=== PATIENT | female | born 1960 | race Caucasian/White ===

== ENCOUNTER 2016-11-04 07:12 | Observation (INO) | payer OTHER ==
[2016-11-04] MEDS ORDERED: HYDROmorphone 0.5 MG/0.5 ML Syringe IM ONE (07:42)
--- NOTE | 2016-11-04 07:52 | EDM.PDOC ---
ED UPPER BACK/NECK PAIN/INJURY - General Chief Complaint: Back Pain or Injury Stated Complaint: REACTION TO MEDS?? 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 She is just getting started on taltz. She has had one half dose. Timing/Duration: Reports: Getting worse, Other (pt is chilling. ) Location: Reports: generalized, other (pt has alot of pain in the thigh area. ) Quality: Reports: Ache, Sharp Associated Symptoms: Reports: Fever/chills, Other (pt does have pain when she urinates. ) - Related Data Allergies/ADRs: Allergies Allergy/AdvReac Type Severity Reaction Status Date / Time dye Allergy Seizure Uncoded 11/04/16 07:38 Home Meds: Home Meds Diazepam [Diazepam] 11/04/16 [History] FLUoxetine [PROzac] 11/04/16 [History] Gabapentin [Neurontin] 11/04/16 [History] Ixekizumab [Taltz Autoinjector] 11/04/16 [History] traZODone 11/04/16 [History] ED ROS GENERAL - Review of Systems Review Of Systems: See Below Constitutional: Reports: fever, chills, malaise, other ( alot of body aches. ) HEENT: Reports: No symptoms Respiratory: Reports: No Symptoms Cardiovascular: Reports: No symptoms Endocrine: Reports: no symptoms GI/Abdominal: Reports: No symptoms : Reports: other ( some increased pain in her pelvis when she voids. ) Musculoskeletal: Reports: muscle pain, muscle stiffness Neurological: Reports: No Symptoms ED EXAM, UPPER BACK/NECK PAIN - Physical Exam Exam: See Below Text/Narrative:: pt has severe pain in the pelvis and ant thighes. She has not been able to rest all nite and she has had shaking chills. Her temp at this point is 100. Exam Limited By: No limitations General Appearance: alert, anxious, moderate distress Ears Exam: normal TMs Nose Exam: normal inspection Throat/Mouth Exam: Normal inspection Head Exam: atraumatic Neck Exam: non-tender Cardiovascular/Respiratory: regular rate, rhythm GI/Abdominal: soft, non tender Rectal (Female) Exam: Deferred Back Exam: other (pt has pain in her lower back and she has psin in her thighes. ) Extremities: normal inspection Neurologic: alert, oriented x 3 Course - Vital Signs Last Recorded V/S: Last Vital Signs Temp 36.8 C 11/04/16 10:50 Pulse 88 11/04/16 10:50 Resp 16 11/04/16 10:50 BP 110/56 L 11/04/16 10:50 Pulse Ox 91 L 11/04/16 10:50 - Orders/Labs/Meds Orders: Active Orders 24 hr Category Date Time Status CULTURE BLOOD [BC] Urgent Lab 11/04/16 08:30 Received CULTURE BLOOD [BC] Urgent Lab 11/04/16 08:37 Received CULTURE URINE [RM] Stat Lab 11/04/16 08:40 Received Sodium Chloride 0.9% [Normal Saline] 1,000 ml Med 11/04/16 08:15 Active IV ASDIRECTED Sodium Chloride 0.9% [Normal Saline] 1,000 ml Med 11/04/16 10:45 Active IV ASDIRECTED Blood Culture x2 Reflex Set [OM.PC] Urgent Oth 11/04/16 08:22 Ordered Medication Orders Sodium Chloride (Normal Saline) 1,000 mls @ 500 mls/hr IV ASDIRECTED JAYNE Last Admin: 11/04/16 08:27 Dose: 500 mls/hr Sodium Chloride (Normal Saline) 1,000 mls @ 200 mls/hr IV ASDIRECTED JAYNE Last Admin: 11/04/16 10:44 Dose: 200 mls/hr Labs: Laboratory Tests 11/04/16 11/04/16 11/04/16 Range/Units 07:50 07:50 07:50 WBC 8.9 (4.5-11.0) K/uL RBC 4.23 (3.30-5.50) M/uL Hgb 12.6 (12.0-15.0) g/dL Hct 38.6 (36.0-48.0) % MCV 91 (80-98) fL MCH 30 (27-31) pg MCHC 33 (32-36) % Plt Count 209 (150-400) K/uL Neut % (Auto) 81 H (36-66) % Lymph % (Auto) 13 L (24-44) % [place] % (Auto) 5 (2-6) % Eos % (Auto) 0 L (2-4) % Baso % (Auto) 1 (0-1) % ESR (0-25) mm/hr Sodium 141 (140-148) mmol/L Potassium 3.1 L (3.6-5.2) mmol/L Chloride 104 (100-108) mmol/L Carbon Dioxide 29 (21-32) mmol/L Anion Gap 11.1 (5.0-14.0) mmol/L BUN 7 (7-18) mg/dL Creatinine 0.8 (0.6-1.0) mg/dL Est Cr Clr Drug Dosing 66.11 mL/min Estimated GFR (MDRD) > 60 (>60) Glucose 141 H (74-106) mg/dL Lactic Acid (0.4-2.0) mmol/L Calcium 7.8 L (8.5-10.1) mg/dL Total Bilirubin 0.3 (0.2-1.0) mg/dL AST 12 L (15-37) U/L ALT 21 (12-78) U/L Alkaline Phosphatase 55 (46-116) U/L C-Reactive Protein 0.49 H (0.0-0.3) mg/dL Total Protein 6.1 L (6.4-8.2) g/dL Albumin 3.2 L (3.4-5.0) g/dL Globulin 2.9 (2.3-3.5) g/dL Albumin/Globulin Ratio 1.1 L (1.2-2.2) Urine Color Urine Appearance Urine pH (4.5-8.0) Ur Specific [place] (1.008-1.030) Urine Protein (NEGATIVE) mg/dL Urine Glucose (UA) (NEGATIVE) mg/dL Urine Ketones (NEGATIVE) mg/dL Urine Occult Blood (NEGATIVE) Urine Nitrite (NEGATIVE) Urine Bilirubin (NEGATIVE) Urine Urobilinogen (NORMAL) mg/dL Ur Leukocyte Esterase (NEGATIVE) Urine RBC (0-5) Urine WBC (0-5) Ur Epithelial Cells Amorphous Sediment Urine Bacteria Urine Mucus 11/04/16 11/04/16 11/04/16 Range/Units 08:13 08:40 08:52 WBC (4.5-11.0) K/uL RBC (3.30-5.50) M/uL Hgb (12.0-15.0) g/dL Hct (36.0-48.0) % MCV (80-98) fL MCH (27-31) pg MCHC (32-36) % Plt Count (150-400) K/uL Neut % (Auto) (36-66) % Lymph % (Auto) (24-44) % [place] % (Auto) (2-6) % Eos % (Auto) (2-4) % Baso % (Auto) (0-1) % ESR 17 (0-25) mm/hr Sodium (140-148) mmol/L Potassium (3.6-5.2) mmol/L Chloride (100-108) mmol/L Carbon Dioxide (21-32) mmol/L Anion Gap (5.0-14.0) mmol/L BUN (7-18) mg/dL Creatinine (0.6-1.0) mg/dL Est Cr Clr Drug Dosing mL/min Estimated GFR (MDRD) (>60) Glucose (74-106) mg/dL Lactic Acid 1.7 (0.4-2.0) mmol/L Calcium (8.5-10.1) mg/dL Total Bilirubin (0.2-1.0) mg/dL AST (15-37) U/L ALT (12-78) U/L Alkaline Phosphatase (46-116) U/L C-Reactive Protein (0.0-0.3) mg/dL Total Protein (6.4-8.2) g/dL Albumin (3.4-5.0) g/dL Globulin (2.3-3.5) g/dL Albumin/Globulin Ratio (1.2-2.2) Urine Color Yellow Urine Appearance Cloudy Urine pH 6.0 (4.5-8.0) Ur Specific [place] 1.020 (1.008-1.030) Urine Protein Negative (NEGATIVE) mg/dL Urine Glucose (UA) Normal (NEGATIVE) mg/dL Urine Ketones Negative (NEGATIVE) mg/dL Urine Occult Blood Moderate (NEGATIVE) Urine Nitrite Negative (NEGATIVE) Urine Bilirubin Negative (NEGATIVE) Urine Urobilinogen Normal (NORMAL) mg/dL Ur Leukocyte Esterase Negative (NEGATIVE) Urine RBC 5-10 H (0-5) Urine WBC Not seen (0-5) Ur Epithelial Cells Moderate Amorphous Sediment Rare Urine Bacteria Rare Urine Mucus Many Meds: Medications Generic Name Dose Route Start Last Admin Trade Name Anitra PRN Reason Stop Dose Admin Sodium Chloride 1,000 mls @ 500 mls/hr 11/04/16 08:15 11/04/16 08:27 Normal Saline IV 500 mls/hr ASDIRECTED JAYNE Administration Sodium Chloride 1,000 mls @ 200 mls/hr 11/04/16 10:45 11/04/16 10:44 Normal Saline IV 200 mls/hr ASDIRECTED JAYNE Administration Discontinued Medications Generic Name Dose Route Start Last Admin Trade Name Anitra PRN Reason Stop Dose Admin Acetaminophen 650 mg 11/04/16 08:41 11/04/16 08:48 Tylenol PO 11/04/16 08:42 650 mg NOW ONE Administration Hydromorphone HCl 0.5 mg 11/04/16 07:42 11/04/16 07:51 Dilaudid IM 11/04/16 07:43 0.5 mg ONETIME ONE Administration Hydromorphone HCl 0.5 mg 11/04/16 08:39 11/04/16 08:48 Dilaudid IVPUSH 11/04/16 08:40 0.5 mg ONETIME ONE Administration Ketorolac Tromethamine 30 mg 11/04/16 09:23 11/04/16 09:27 Toradol IVPUSH 11/04/16 09:24 30 mg ONETIME ONE Administration Lorazepam 1 mg 11/04/16 09:13 11/04/16 09:17 Ativan IVPUSH 11/04/16 09:14 1 mg ONETIME ONE Administration Ondansetron HCl 4 mg 11/04/16 08:39 11/04/16 08:48 Zofran IVPUSH 11/04/16 08:40 4 mg ONETIME ONE Administration Potassium Chloride 20 meq 11/04/16 09:53 11/04/16 10:47 Klor-Con M20 PO 11/04/16 09:54 20 meq ONETIME ONE Administration - Re-Assessments/Exams Free Text/Narrative Re-Assessment/Exam: 11/04/16 08:49 p has a normal wbc. Her influ a and b are neg. Her k is on the low side. Her urine has some rbcs but not lot of bacteria. Blood cultures were drawn. Her crp is mildly elevated. Her sed rate is 17. She was given dilaudid 1 mg and did not have good relief. She was given ativan 1 mg and torodol 30mg iv and she has been able to relax and rest. 11/04/16 09:50 Departure - Departure Time of Disposition: 11:23 Disposition: Admitted As Inpatient 65 Condition: fair Clinical Impression: Arthritis with psoriasis, Immunosuppressed status, Infection Forms: ED Department Discharge Care Plan Goals: admit to Dr painting. - My Orders Last 24 Hours: My Active Orders 11/04/16 08:15 Sodium Chloride 0.9% [Normal Saline] 1,000 ml IV ASDIRECTED 11/04/16 08:22 Blood Culture x2 Reflex Set [OM.PC] Urgent 11/04/16 08:30 CULTURE BLOOD [BC] Urgent 11/04/16 08:37 CULTURE BLOOD [BC] Urgent 11/04/16 08:40 CULTURE URINE [RM] Stat 11/04/16 10:45 Sodium Chloride 0.9% [Normal Saline] 1,000 ml IV ASDIRECTED - Assessment/Plan Last 24 Hours: My Active Orders 11/04/16 08:15 Sodium Chloride 0.9% [Normal Saline] 1,000 ml IV ASDIRECTED 11/04/16 08:22 Blood Culture x2 Reflex Set [OM.PC] Urgent 11/04/16 08:30 CULTURE BLOOD [BC] Urgent 11/04/16 08:37 CULTURE BLOOD [BC] Urgent 11/04/16 08:40 CULTURE URINE [RM] Stat 11/04/16 10:45 Sodium Chloride 0.9% [Normal Saline] 1,000 ml IV ASDIRECTED
[2016-11-04] MEDS ORDERED: Sodium Chloride 0.9% 1,000 ML IV SCH ×3 (08:15→13:27)
[2016-11-04] MEDS ORDERED: Ondansetron 4 MG/2 ML SDV IVPUSH ONE (08:39)
[2016-11-04] MEDS ORDERED: HYDROmorphone 0.5 MG/0.5 ML Syringe IVPUSH ONE (08:39)
[2016-11-04] MEDS ORDERED: Acetaminophen 325 MG Tab PO ONE (08:41)
[2016-11-04] MEDS ORDERED: LORazepam 2 MG/ML MDV IVPUSH ONE (09:13)
[2016-11-04] MEDS ORDERED: Ketorolac 30 MG/ML SDV IVPUSH ONE (09:23)
[2016-11-04] MEDS ORDERED: Potassium Chloride 20 MEQ Tab.ER PO ONE ×2 (09:53→13:15)
--- NOTE | 2016-11-04 10:23 | CR ---
Heart size within normal limits. No focal consolidation. Pulmonary vasculature within normal limits.
--- NOTE | 2016-11-04 13:10 | PCM.HP ---
H&P History of Present Illness - General Date of Service: 11/04/16 Admit Problem/Dx: Admission Diagnosis/Problem Admission Diagnosis/Problem Muscle pain Source of Information: Patient, Family History Limitations: Reports: No limitations - History of Present Illness Initial Comments - Free Text/Narative: Nathalie presents to the ER today with acute and progressive generalized muscle aches as well as headache and fatigue. Symptoms started yesterday morning with mild aches and pains mostly in her back and upper body. These pains progressed throughout the day before she developed shaking chills as well as a moderate generalized headache. Later in the day she developed moderate and severe achy pain in her legs. She tried taking a variety of her home medications including lidocaine patches with no improvement in her pain. She had subjective feelings of warmth but did not measure any fevers. She did not have any appetite. She did not sleep well last night because the pain was so intense. She did not necessarily find anything to make the pain worse but was very uncomfortable with her she was laying down and sitting up or standing up. No complaints of cough, shortness of breath or sore throat. No nausea. No change in her chronic diarrhea. No discomfort with urination or abdominal pain. She has not had any sick contacts that she is aware of. She does note that she had a second of 3 hepatitis B vaccinations the day before onset of symptoms. Workup in the emergency room has been reassuring with normal laboratory studies. Chest x-ray was clear. She is much more comfortable after a few doses of pain medication and a dose of lorazepam. She will be admitted for observation given the severity of her pain on arrival. - Related Data Allergies/Adverse Reactions: Allergies Allergy/AdvReac Type Severity Reaction Status Date / Time dye Allergy Seizure Uncoded 11/04/16 07:38 Home Medications: Home Meds Diazepam [Diazepam] 5 mg PO BEDTIME 11/04/16 [History] FLUoxetine [PROzac] 20 mg PO DAILY 11/04/16 [History] Gabapentin [Neurontin] 100 mg PO QID 11/04/16 [History] Ixekizumab [Taltz Autoinjector] 11/04/16 [History] traZODone 50 mg PO BEDTIME 11/04/16 [History] Past Medical History Musculoskeletal History: Reports: RA Dermatologic History: Reports: Psoriasis - Past Surgical History Female Surgical History: Reports: Hysterectomy Social & Family History - Family History Cardiac: Denies: CAD - Tobacco Use Smoking Status *Q: Current Every Day Smoker Years of Tobacco use: 35 Packs/Tins Daily: 0.5 - Alcohol Use Alcohol Use History: No - Recreational Drug Use Recreational Drug Use: No H&P Review of Systems - Review of Systems: Review Of Systems: See Below Free Text/Narrative: A complete 12 point review of systems was obtained. Pertinent positives and negatives are noted in the history of present illness. All other systems were reviewed and were negative except as noted. Exam - Exam Exam: See Below - Vital Signs Vital Signs: Last Vital Signs Temp 36.8 C 11/04/16 10:50 Pulse 88 11/04/16 10:50 Resp 16 11/04/16 10:50 BP 110/56 L 11/04/16 10:50 Pulse Ox 91 L 11/04/16 10:50 Weight: 53.977 kg - Exam Quality Assessment: No: supplemental oxygen, urinary catheter General: alert, oriented, cooperative. No: mild distress HEENT: Conjunctiva clear, Normal nasal septum. No: Posterior pharynx clear, Scleral icterus Neck: supple, trachea midline Lungs: Clear to auscultation, Normal respiratory effort Cardiovascular: regular rate, regular rhythm. No: systolic murmur Abdomen: normal bowel sounds, soft. No: distention, tenderness Back Exam: normal inspection, full range of motion Extremities: normal inspection, normal pulses, other (No muscle tenderness. No warmth, swelling or tenderness of ankles, knees, wrists or elbows). No: cyanosis, edema Peripheral Pulses: 2+: dorsalis pedis (L), dorsalis pedis (R) Skin: warm, dry, intact. No: rash Neuro Extensive - Mental Status: alert, oriented x3, nl response to commands Neuro Extensive - Motor, Sensory, Reflexes: CN II-XII intact. No: dysarthria, abnormal motor, tremor Psychiatric: alert, normal affect - Patient Data Lab Results last 24 hrs: Laboratory Results - last 24 hr 11/04/16 11/04/16 11/04/16 Range/Units 07:50 07:50 07:50 WBC 8.9 (4.5-11.0) K/uL RBC 4.23 (3.30-5.50) M/uL Hgb 12.6 (12.0-15.0) g/dL Hct 38.6 (36.0-48.0) % MCV 91 (80-98) fL MCH 30 (27-31) pg MCHC 33 (32-36) % Plt Count 209 (150-400) K/uL Neut % (Auto) 81 H (36-66) % Lymph % (Auto) 13 L (24-44) % [place] % (Auto) 5 (2-6) % Eos % (Auto) 0 L (2-4) % Baso % (Auto) 1 (0-1) % ESR (0-25) mm/hr Sodium 141 (140-148) mmol/L Potassium 3.1 L (3.6-5.2) mmol/L Chloride 104 (100-108) mmol/L Carbon Dioxide 29 (21-32) mmol/L Anion Gap 11.1 (5.0-14.0) mmol/L BUN 7 (7-18) mg/dL Creatinine 0.8 (0.6-1.0) mg/dL Est Cr Clr Drug Dosing 66.11 mL/min Estimated GFR (MDRD) > 60 (>60) Glucose 141 H (74-106) mg/dL Lactic Acid (0.4-2.0) mmol/L Calcium 7.8 L (8.5-10.1) mg/dL Total Bilirubin 0.3 (0.2-1.0) mg/dL AST 12 L (15-37) U/L ALT 21 (12-78) U/L Alkaline Phosphatase 55 (46-116) U/L C-Reactive Protein 0.49 H (0.0-0.3) mg/dL Total Protein 6.1 L (6.4-8.2) g/dL Albumin 3.2 L (3.4-5.0) g/dL Globulin 2.9 (2.3-3.5) g/dL Albumin/Globulin Ratio 1.1 L (1.2-2.2) Urine Color Urine Appearance Urine pH (4.5-8.0) Ur Specific [place] (1.008-1.030) Urine Protein (NEGATIVE) mg/dL Urine Glucose (UA) (NEGATIVE) mg/dL Urine Ketones (NEGATIVE) mg/dL Urine Occult Blood (NEGATIVE) Urine Nitrite (NEGATIVE) Urine Bilirubin (NEGATIVE) Urine Urobilinogen (NORMAL) mg/dL Ur Leukocyte Esterase (NEGATIVE) Urine RBC (0-5) Urine WBC (0-5) Ur Epithelial Cells Amorphous Sediment Urine Bacteria Urine Mucus 11/04/16 11/04/16 11/04/16 Range/Units 08:13 08:40 08:52 WBC (4.5-11.0) K/uL RBC (3.30-5.50) M/uL Hgb (12.0-15.0) g/dL Hct (36.0-48.0) % MCV (80-98) fL MCH (27-31) pg MCHC (32-36) % Plt Count (150-400) K/uL Neut % (Auto) (36-66) % Lymph % (Auto) (24-44) % [place] % (Auto) (2-6) % Eos % (Auto) (2-4) % Baso % (Auto) (0-1) % ESR 17 (0-25) mm/hr Sodium (140-148) mmol/L Potassium (3.6-5.2) mmol/L Chloride (100-108) mmol/L Carbon Dioxide (21-32) mmol/L Anion Gap (5.0-14.0) mmol/L BUN (7-18) mg/dL Creatinine (0.6-1.0) mg/dL Est Cr Clr Drug Dosing mL/min Estimated GFR (MDRD) (>60) Glucose (74-106) mg/dL Lactic Acid 1.7 (0.4-2.0) mmol/L Calcium (8.5-10.1) mg/dL Total Bilirubin (0.2-1.0) mg/dL AST (15-37) U/L ALT (12-78) U/L Alkaline Phosphatase (46-116) U/L C-Reactive Protein (0.0-0.3) mg/dL Total Protein (6.4-8.2) g/dL Albumin (3.4-5.0) g/dL Globulin (2.3-3.5) g/dL Albumin/Globulin Ratio (1.2-2.2) Urine Color Yellow Urine Appearance Cloudy Urine pH 6.0 (4.5-8.0) Ur Specific [place] 1.020 (1.008-1.030) Urine Protein Negative (NEGATIVE) mg/dL Urine Glucose (UA) Normal (NEGATIVE) mg/dL Urine Ketones Negative (NEGATIVE) mg/dL Urine Occult Blood Moderate (NEGATIVE) Urine Nitrite Negative (NEGATIVE) Urine Bilirubin Negative (NEGATIVE) Urine Urobilinogen Normal (NORMAL) mg/dL Ur Leukocyte Esterase Negative (NEGATIVE) Urine RBC 5-10 H (0-5) Urine WBC Not seen (0-5) Ur Epithelial Cells Moderate Amorphous Sediment Rare Urine Bacteria Rare Urine Mucus Many Result Diagrams: 11/04/16 07:50 11/04/16 07:50 Jared Results last 24 hrs: Microbiology 11/04/16 08:24 Influenza Type A Antigen Screen - Final Nasopharyngeal Swab - Nare, Unspecified NEGATIVE INFLUENZA A VIRUS AG Influenza Type B Antigen Screen - Final No Growth Imaging Impressions last 24 hrs: CXR - images personally reviewed - there is in evidence for mass, infiltrate, chf or infiltrative process *Q Meaningful Use (ADM) - VTE *Q VTE Criteria *Q: - Stroke *Q Stroke Criteria *Q: - AMI *Q AMI Criteria *Q: - Problem List (1) Flu-like symptoms SNOMED Code(s): 804554769 ICD Code: R68.89 - OTHER GENERAL SYMPTOMS AND SIGNS Status: Acute Current Visit: Yes (2) Myalgia SNOMED Code(s): 18815219 ICD Code: M79.1 - MYALGIA Status: Acute Current Visit: Yes Problem List Initiated/Reviewed/Updated: Yes Orders Last 24hrs: Active Orders 24 hr Category Date Time Status Patient Status Manage Transfer [TRANSFER] Routine ADT 11/04/16 13:02 Ordered CULTURE BLOOD [BC] Urgent Lab 11/04/16 08:30 Received CULTURE BLOOD [BC] Urgent Lab 11/04/16 08:37 Received CULTURE URINE [RM] Stat Lab 11/04/16 08:40 Received Potassium Chloride [Klor-Con M20] Med 11/04/16 13:15 Once 20 meq PO ONETIME ONE Sodium Chloride 0.9% [Normal Saline] 1,000 ml Med 11/04/16 08:15 Active IV ASDIRECTED Sodium Chloride 0.9% [Normal Saline] 1,000 ml Med 11/04/16 10:45 Active IV ASDIRECTED Blood Culture x2 Reflex Set [OM.PC] Urgent Oth 11/04/16 08:22 Ordered Resuscitation Status Routine Resus Stat 11/04/16 13:04 Ordered Medication Orders Sodium Chloride (Normal Saline) 1,000 mls @ 500 mls/hr IV ASDIRECTED [facility] Last Admin: 11/04/16 08:27 Dose: 500 mls/hr Sodium Chloride (Normal Saline) 1,000 mls @ 200 mls/hr IV ASDIRECTED [facility] Last Admin: 11/04/16 10:44 Dose: 200 mls/hr Potassium Chloride (Klor-Con M20) 20 meq PO ONETIME ONE Stop: 11/04/16 13:16 Assessment/Plan Comment:: Assessment and plan - Generalized myalgias and headache - influenza-like syndrome minus the cough and shortness of breath sounds very much like a viral syndrome to me with consideration given to possible systemic reaction to the second immunization for hepatitis B. She is doing much better after pain control in the emergency room. Laboratory studies are reassuring. Vital signs are stable. No other obvious evidence for infection. She is immunosuppressed with recent infusion of a biologic agent. -IV fluids -Pain control -Hold biologic which was due today -Monitor for evidence of fever or new symptoms overnight Psoriasis - No history of psoriatic arthritis. Recently started on biologic agents with most recent dose about one month ago. -Hold biologic Tobacco dependence - patient will need counseling about importance of tobacco cessation and general health maintenance. -Nicotine patch Maintenance issues - - DVT prophylaxis - mechanical - GI prophylaxis - not indicated - Nutrition - regular diet as tolerated - Kruger catheter - not indicated CODE STATUS - full code Admission justification - patient will be referred observation status for hydration and overnight monitoring Disposition - anticipate discharge home tomorrow Primary care physician - Theresa Levin M.D.
[2016-11-04] MEDS ORDERED: Ondansetron 4 MG Tab.DIS PO PRN (13:27)
[2016-11-04] MEDS ORDERED: DIAZEPAM 5 MG PO PRN (13:27)
[2016-11-04] MEDS ORDERED: Ibuprofen 600 MG Tab PO PRN (13:27)
[2016-11-04] MEDS ORDERED: Polyethylene Glycol 3350 Powder 17 GM Packet PO PRN (13:27)
[2016-11-04] MEDS: HYDROmorphone 0.5 MG/0.5 ML Syringe IVPUSH PRN ×3 (14:20→22:29)
[2016-11-04] MEDS ORDERED: Diazepam 5 MG Tab PO PRN (14:39)
[2016-11-04] MEDS: LORazepam 2 MG/ML MDV IV PRN (16:01)
[2016-11-04] MEDS: Gabapentin 100 MG Cap PO SCH ×2 (16:03→22:28)
[2016-11-04] MEDS: Nicotine 7 MG/24 Hr Patch TRDERM SCH (16:13)
[2016-11-04] MEDS: Acetaminophen 325 MG Tab PO PRN (20:26)
--- NOTE | 2016-11-04 20:39 | PCM.SN ---
- Free Text/Narrative Note: time ; 20:12 call from [address] [place] [address] ; Patient report urinary urgency and pressure. bladder scan <40ml, patient is anxious a; urinary urgency anxiety p; ua/micro pending, continue IV fluids at 125ml/hr. give Ativan 1 mg iv now. continue present plan of care.
[2016-11-04] MEDS ORDERED: Tamsulosin 0.4 MG Cap.ER PO ONE (22:04)
[2016-11-04] MEDS: traZODone 50 MG Tab PO SCH (22:27)
[2016-11-05] MEDS: Sodium Chloride 0.9% 1,000 ML IV SCH ×4 (01:32→21:51)
[2016-11-05] MEDS: HYDROmorphone 0.5 MG/0.5 ML Syringe IVPUSH PRN ×5 (01:55→19:46)
[2016-11-05] MEDS: Gabapentin 100 MG Cap PO SCH ×4 (05:50→21:52)
[2016-11-05] MEDS: LORazepam 2 MG/ML MDV IV PRN ×2 (08:13→19:45)
[2016-11-05] MEDS: FLUoxetine 20 MG Cap PO SCH (08:16)
[2016-11-05] MEDS: Nicotine 7 MG/24 Hr Patch TRDERM SCH (08:17)
[2016-11-05] MEDS ORDERED: Tamsulosin 0.4 MG Cap.ER PO SCH (09:00)
[2016-11-05] MEDS: Acetaminophen 325 MG Tab PO PRN ×2 (09:29→19:43)
[2016-11-05] MEDS: Ketorolac 30 MG/ML SDV IVPUSH PRN ×2 (11:16→17:38)
--- NOTE | 2016-11-05 13:34 | PCM.PN ---
- General Info Date of Service: 11/05/16 Functional Status: Denies: pain controlled, tolerating diet, ambulating - Review of Systems Genitourinary: Reports: urgency Musculoskeletal: Reports: leg pain Systems Review Comment:: Overnight patient had difficulty with significant urinary urgency and a sensation she was unable to empty her bladder. Bladder scan revealed only a very small quantity of urine. Urine output has picked up since that time. Abdominal x-ray was possibly suggestive of a kidney stone but CT scan did not confirm a stone. No fevers overnight. Still does not have an appetite and has moderate to moderately severe leg pain building back up today. Pain limits her ability to get out of bed and move around. - Patient Data Vitals - most recent: Last Vital Signs Temp 36.2 C 11/05/16 10:43 Pulse 87 11/05/16 10:43 Resp 18 11/05/16 10:43 BP 125/55 L 11/05/16 10:43 Pulse Ox 87 L 11/05/16 10:43 Weight - most recent: 53.977 kg I&O - last 24 hours: Intake & Output 11/04/16 11/05/16 11/05/16 22:59 06:59 14:59 Intake Total 834 2813 Output Total 340 650 200 Balance 494 2163 -200 Lab Results last 24 hrs: Laboratory Results - last 24 hr 11/04/16 Range/Units 20:20 Urine Color Yellow Urine Appearance Clear Urine pH 6.0 (4.5-8.0) Ur Specific [place] 1.020 (1.008-1.030) Urine Protein Negative (NEGATIVE) mg/dL Urine Glucose (UA) Normal (NEGATIVE) mg/dL Urine Ketones Negative (NEGATIVE) mg/dL Urine Occult Blood Large (NEGATIVE) Urine Nitrite Negative (NEGATIVE) Urine Bilirubin Small (NEGATIVE) Urine Urobilinogen Normal (NORMAL) mg/dL Ur Leukocyte Esterase Negative (NEGATIVE) Med Orders - Current: Current Medications Acetaminophen (Tylenol) 650 mg PO Q4H PRN PRN Reason: Pain (Mild 1-3)/fever Last Admin: 11/05/16 09:29 Dose: 650 mg Diazepam (Valium.) 5 mg PO BEDTIME PRN PRN Reason: Insomnia Fluoxetine HCl (Prozac) 20 mg PO DAILY [facility] Last Admin: 11/05/16 08:16 Dose: 20 mg Gabapentin (Neurontin) 100 mg PO QID [facility] Last Admin: 11/05/16 09:21 Dose: 100 mg Hydromorphone HCl (Dilaudid) 0.5 - 1 mg IVPUSH Q2H PRN PRN Reason: Pain (severe 7-10) Last Admin: 11/05/16 07:13 Dose: 1 mg Sodium Chloride (Normal Saline) 1,000 mls @ 150 mls/hr IV ASDIRECTED [facility] Last Admin: 11/05/16 08:15 Dose: 150 mls/hr Ketorolac Tromethamine (Toradol) 30 mg IVPUSH Q6H PRN PRN Reason: Pain Stop: 11/10/16 10:27 Last Admin: 11/05/16 11:16 Dose: 30 mg Lorazepam (Ativan) 0.5 - 1 mg IV Q4H PRN PRN Reason: Nausea/Vomiting Last Admin: 11/05/16 08:13 Dose: 1 mg Nicotine (Habitrol) 7 mg TRDERM DAILY [facility] Last Admin: 11/05/16 08:17 Dose: 7 mg Ondansetron HCl (Zofran Odt) 4 mg PO Q6H PRN PRN Reason: Nausea able to take PO Last Admin: 11/04/16 19:34 Dose: 4 mg Polyethylene Glycol (Miralax) 17 gm PO DAILY PRN PRN Reason: Constipation Trazodone HCl (Trazodone) 50 mg PO BEDTIME [facility] Last Admin: 11/04/16 22:27 Dose: 50 mg Discontinued Medications Acetaminophen (Tylenol) 650 mg PO NOW ONE Stop: 11/04/16 08:42 Last Admin: 11/04/16 08:48 Dose: 650 mg Hydromorphone HCl (Dilaudid) 0.5 mg IM ONETIME ONE Stop: 11/04/16 07:43 Last Admin: 11/04/16 07:51 Dose: 0.5 mg Hydromorphone HCl (Dilaudid) 0.5 mg IVPUSH ONETIME ONE Stop: 11/04/16 08:40 Last Admin: 11/04/16 08:48 Dose: 0.5 mg Sodium Chloride (Normal Saline) 1,000 mls @ 500 mls/hr IV ASDIRECTED [facility] Last Admin: 11/04/16 08:27 Dose: 500 mls/hr Sodium Chloride (Normal Saline) 1,000 mls @ 200 mls/hr IV ASDIRECTED [facility] Last Admin: 11/04/16 10:44 Dose: 200 mls/hr Sodium Chloride (Normal Saline) 1,000 mls @ 125 mls/hr IV ASDIRECTED [facility] Last Infusion: 11/04/16 22:30 Dose: 150 mls/hr Ibuprofen (Motrin) 600 mg PO Q6H PRN PRN Reason: Pain/Fever Ketorolac Tromethamine (Toradol) 30 mg IVPUSH ONETIME ONE Stop: 11/04/16 09:24 Last Admin: 11/04/16 09:27 Dose: 30 mg Lorazepam (Ativan) 1 mg IVPUSH ONETIME ONE Stop: 11/04/16 09:14 Last Admin: 11/04/16 09:17 Dose: 1 mg Non-Formulary Medication (Diazepam [Diazepam]) 5 mg PO BEDTIME PRN PRN Reason: Insomnia Ondansetron HCl (Zofran) 4 mg IVPUSH ONETIME ONE Stop: 11/04/16 08:40 Last Admin: 11/04/16 08:48 Dose: 4 mg Potassium Chloride (Klor-Con M20) 20 meq PO ONETIME ONE Stop: 11/04/16 09:54 Last Admin: 11/04/16 10:47 Dose: 20 meq Potassium Chloride (Klor-Con M20) 20 meq PO ONETIME ONE Stop: 11/04/16 13:16 Last Admin: 11/04/16 13:32 Dose: 20 meq Tamsulosin HCl (Flomax) 0.4 mg PO ONETIME ONE Stop: 11/04/16 22:05 Last Admin: 11/04/16 22:28 Dose: 0.4 mg Tamsulosin HCl (Flomax) 0.4 mg PO PCBREAKFAST [facility] - Exam Quality Assessment: No: supplemental oxygen General: alert, oriented, cooperative, mild distress Neck: supple Lungs: Normal respiratory effort Abdomen: soft, no distension Extremities: no edema, no cyanosis Skin: warm, dry Psy/Mental Status: alert, normal affect - Problem List & Annotations (1) Flu-like symptoms SNOMED Code(s): 895238912 Code(s): R68.89 - OTHER GENERAL SYMPTOMS AND SIGNS Status: Acute Current Visit: Yes (2) Myalgia SNOMED Code(s): 09418802 Code(s): M79.1 - MYALGIA Status: Acute Current Visit: Yes - Problem List Review Problem List Initiated/Reviewed/Updated: Yes - My Orders Last 24 Hours: My Active Orders 11/04/16 13:04 Resuscitation Status Routine 11/04/16 13:27 Patient Status [ADT] Routine Intake and Output [RC] QSHIFT Notify Provider Vital Signs [RC] ASDIRECTED Oxygen Therapy [RC] PRN Up ad Rachel [RC] ASDIRECTED VTE/DVT Education [RC] Per Unit Routine Vital Signs [RC] Q4H Acetaminophen [Tylenol] 650 mg PO Q4H PRN HYDROmorphone [Dilaudid] 0.5 - 1 mg IVPUSH Q2H PRN LORazepam [Ativan] 0.5 - 1 mg IV Q4H PRN Ondansetron [Zofran ODT] 4 mg PO Q6H PRN Polyethylene Glycol 3350 [MiraLAX] 17 gm PO DAILY PRN Sequential Compression Device [OM.PC] Per Unit Routine 11/04/16 14:39 Diazepam [Valium] 5 mg PO BEDTIME PRN 11/04/16 16:00 Nicotine [Habitrol] 7 mg TRDERM DAILY 11/05/16 10:26 Ketorolac [Toradol] 30 mg IVPUSH Q6H PRN 11/05/16 10:30 STONE ANALYSIS WITH IMAGE [REF] Routine - Plan Plan:: Assessment and plan - Generalized myalgias and headache - influenza-like syndrome minus the cough and shortness of breath sounds very much like a viral syndrome. CT scan overnight showed some fluid in the colon that would be consistent with enteritis. Viral syndrome very strongly suspected at this point. Patient has ongoing myalgias and difficulty with symptom management. -Continue IV fluids -Pain control -Trial of Toradol -Hold biologic which was due yesterday -Monitor for evidence of fever or new symptoms overnight Psoriasis - No history of psoriatic arthritis. Recently started on biologic agents with most recent dose about one month ago. -Hold biologic Tobacco dependence - patient will need counseling about importance of tobacco cessation and general health maintenance. -Nicotine patch Maintenance issues - - DVT prophylaxis - mechanical - GI prophylaxis - not indicated - Nutrition - regular diet as tolerated Admission justification - patient will be referred observation status for hydration and overnight monitoring Disposition - anticipate discharge home tomorrow if we can get on top of her pain control Waqar Levin M.D.
[2016-11-05] MEDS: traZODone 50 MG Tab PO SCH (21:52)
[2016-11-06] MEDS: Ketorolac 30 MG/ML SDV IVPUSH PRN ×2 (00:07→07:46)
[2016-11-06] MEDS: LORazepam 2 MG/ML MDV IV PRN (00:07)
[2016-11-06] MEDS: Sodium Chloride 0.9% 1,000 ML IV SCH (04:28)
[2016-11-06] MEDS: Gabapentin 100 MG Cap PO SCH ×2 (05:50→09:04)
[2016-11-06 08:18] VITALS: BP 145/81
[2016-11-06] MEDS: Nicotine 7 MG/24 Hr Patch TRDERM SCH (09:04)
[2016-11-06] MEDS: FLUoxetine 20 MG Cap PO SCH (09:04)
[2016-11-06] MEDS ORDERED: oxyCODONE 5 MG Tab PO PRN (09:39)
--- NOTE | 2016-11-06 10:07 | PCM.DCSUM1 ---
Discharge Summary - Hospital Course Brief History: 56 -year-old female with history of psoriasis on immunosuppressive medications who presented with severe myalgias and was admitted for management of pain control and presumed viral syndrome. - Discharge Data Discharge Date: 11/06/16 Discharge Disposition: Home, Self-Care 01 Condition: Good - Discharge Diagnosis/Problem(s) (1) Flu-like symptoms SNOMED Code(s): 120969152 ICD Code: R68.89 - OTHER GENERAL SYMPTOMS AND SIGNS Status: Acute (2) Myalgia SNOMED Code(s): 50038347 ICD Code: M79.1 - MYALGIA Status: Acute - Patient Summary/Data Hospital Course: Nathalie presented to the emergency room with headache and severe myalgias involving her torso and thighs. Workup in the emergency room was reassuring with normal laboratory studies. Her pain was severe and she was not thought safe for outpatient management. She was admitted to the hospital for observation and pain control. Overnight there was initially some improvement but the next morning her pain had worsened to levels similar to that of presentation. Additional doses of IV narcotics as well as Toradol were given with some slow improvement. We did hydrate her through the course of the hospital stay. Overnight following admission she had some urinary urgency but bladder scan revealed only minimal urine in the bladder. She did have some hematuria noted and an x-ray was possibly suggestive of a kidney stone. A noncontrast CT scan was performed and did not show evidence for a kidney stone. The CT scan did note significant fluid throughout the colon concerning for enteritis. Throughout the second day and night of the hospital stay she did have some improvement with significant decreases in her pain. She does not have much of an appetite but in general feels quite a bit better on the day of discharge. I'm suspicious that she is suffering from a viral syndrome, possibly a gastroenteritis-type picture with some nausea and diarrhea occurring during the hospital stay. This could explain her severe myalgias and headache as well. Laboratory studies have all been normal. CT scan did not reveal acute pathology. Clinically she is feeling better with mostly symptomatic cares and hydration. I suspect that the symptoms are more severe than expected because of her immunosuppressed status while taking her biologic to suppress psoriasis. Clinically she has improved enough to the point that she is safe for outpatient management. She will maintain soft and bland foods for several days before advancing her diet. I did give her a note stating she can be off work for the next 2 days but should be able to return to work on November 09 without restrictions. She has a prescription for nausea medication as well as a limited supply of pain medications. - Patient Instructions Diet: Regular Diet as Tolerated Diet, Other: soft and bland foods until your appetite improves Activity: As Tolerated Driving: Do Not Drive (if taking pain pills) Showering/Bathing: May Shower Notify Provider of: Fever, Increased Pain, Nausea and/or Vomiting Other/Special Instructions: 1. You were in the hospital for management of a presumed viral syndrome with significant muscle pains as well as enteritis ( diarrhea). We have been treating symptomatically with pain medications and antinausea medications as well as IV fluids. This viral syndrome should continue to improve with decreasing symptoms over the next 24-48 hours. You can use acetaminophen for mild pain or fever and oxycodone for moderate or severe pain. You can use promethazine for nausea. I would recommend liquids to maintain hydration and to soft bland foods until your appetite improves. 2. You may return to work on November 09 without restrictions as long as you continue to feel better. If you're not feeling better by Monday you should be seen in the clinic for reevaluation. 3. Please seek medical attention if you develops fever greater than 101, worsening muscle or abdominal pain or you have severe nausea with vomiting and are unable to keep any food or liquid down. - Discharge Plan Prescriptions/Med Rec: Promethazine [Phenergan] 25 mg PO Q6H PRN #15 tab PRN Reason: Nausea oxyCODONE 5 mg PO Q4H PRN #15 tablet PRN Reason: Pain Home Medications: Home Meds Diazepam 5 mg PO BEDTIME 11/04/16 [History] FLUoxetine [PROzac] 20 mg PO DAILY 11/04/16 [History] Gabapentin [Neurontin] 100 mg PO QID 11/04/16 [History] Ixekizumab [Taltz Autoinjector] 40 mg SQ ASDIRECTED 11/04/16 [History] traZODone 50 mg PO BEDTIME 11/04/16 [History] Promethazine [Phenergan] 25 mg PO Q6H PRN #15 tab 11/06/16 [Rx] oxyCODONE 5 mg PO Q4H PRN #15 tablet 11/06/16 [Rx] Patient Handouts: Viral Gastroenteritis, Adult, Smoking Cessation, Tips for Success Referrals: Theresa Austin PA [Primary Care Provider] - (f/u if symptoms get worse or do not continue to get better) - Discharge Summary/Plan Comment DC Time >30 min.: No (25) - Patient Data Vitals - Most Recent: Last Vital Signs Temp 36.2 C 11/06/16 07:50 Pulse 96 11/06/16 07:50 Resp 16 11/06/16 07:50 BP 145/81 H 11/06/16 07:50 Pulse Ox 92 L 11/06/16 07:50 Weight - Most Recent: 53.977 kg I&O - Last 24 hours: Intake & Output 11/05/16 11/06/16 11/06/16 22:59 06:59 14:59 Intake Total 1846 1815 Output Total 450 875 Balance 1396 940 Med Orders - Current: Current Medications Acetaminophen (Tylenol) 650 mg PO Q4H PRN PRN Reason: Pain (Mild 1-3)/fever Last Admin: 11/05/16 19:43 Dose: 650 mg Diazepam (Valium.) 5 mg PO BEDTIME PRN PRN Reason: Insomnia Fluoxetine HCl (Prozac) 20 mg PO DAILY [facility] Last Admin: 11/06/16 09:04 Dose: 20 mg Gabapentin (Neurontin) 100 mg PO QID [facility] Last Admin: 11/06/16 09:04 Dose: 100 mg Hydromorphone HCl (Dilaudid) 0.5 - 1 mg IVPUSH Q2H PRN PRN Reason: Pain (severe 7-10) Last Admin: 11/05/16 19:46 Dose: 1 mg Ketorolac Tromethamine (Toradol) 30 mg IVPUSH Q6H PRN PRN Reason: Pain Stop: 11/10/16 10:27 Last Admin: 11/06/16 07:46 Dose: 30 mg Lorazepam (Ativan) 0.5 - 1 mg IV Q4H PRN PRN Reason: Nausea/Vomiting Last Admin: 11/06/16 00:07 Dose: 1 mg Nicotine (Habitrol) 7 mg TRDERM DAILY [facility] Last Admin: 11/06/16 09:04 Dose: 7 mg Ondansetron HCl (Zofran Odt) 4 mg PO Q6H PRN PRN Reason: Nausea able to take PO Last Admin: 11/04/16 19:34 Dose: 4 mg Oxycodone HCl (Oxycodone) 5 mg PO Q4H PRN PRN Reason: Pain Polyethylene Glycol (Miralax) 17 gm PO DAILY PRN PRN Reason: Constipation Trazodone HCl (Trazodone) 50 mg PO BEDTIME [facility] Last Admin: 11/05/16 21:52 Dose: 50 mg Discontinued Medications Acetaminophen (Tylenol) 650 mg PO NOW ONE Stop: 11/04/16 08:42 Last Admin: 11/04/16 08:48 Dose: 650 mg Hydromorphone HCl (Dilaudid) 0.5 mg IM ONETIME ONE Stop: 11/04/16 07:43 Last Admin: 11/04/16 07:51 Dose: 0.5 mg Hydromorphone HCl (Dilaudid) 0.5 mg IVPUSH ONETIME ONE Stop: 11/04/16 08:40 Last Admin: 11/04/16 08:48 Dose: 0.5 mg Sodium Chloride (Normal Saline) 1,000 mls @ 500 mls/hr IV ASDIRECTED [facility] Last Admin: 11/04/16 08:27 Dose: 500 mls/hr Sodium Chloride (Normal Saline) 1,000 mls @ 200 mls/hr IV ASDIRECTED [facility] Last Admin: 11/04/16 10:44 Dose: 200 mls/hr Sodium Chloride (Normal Saline) 1,000 mls @ 125 mls/hr IV ASDIRECTED [facility] Last Infusion: 11/04/16 22:30 Dose: 150 mls/hr Sodium Chloride (Normal Saline) 1,000 mls @ 150 mls/hr IV ASDIRECTED [facility] Last Admin: 11/06/16 04:28 Dose: 150 mls/hr Ibuprofen (Motrin) 600 mg PO Q6H PRN PRN Reason: Pain/Fever Ketorolac Tromethamine (Toradol) 30 mg IVPUSH ONETIME ONE Stop: 11/04/16 09:24 Last Admin: 11/04/16 09:27 Dose: 30 mg Lorazepam (Ativan) 1 mg IVPUSH ONETIME ONE Stop: 11/04/16 09:14 Last Admin: 11/04/16 09:17 Dose: 1 mg Non-Formulary Medication (Diazepam [Diazepam]) 5 mg PO BEDTIME PRN PRN Reason: Insomnia Ondansetron HCl (Zofran) 4 mg IVPUSH ONETIME ONE Stop: 11/04/16 08:40 Last Admin: 11/04/16 08:48 Dose: 4 mg Potassium Chloride (Klor-Con M20) 20 meq PO ONETIME ONE Stop: 11/04/16 09:54 Last Admin: 11/04/16 10:47 Dose: 20 meq Potassium Chloride (Klor-Con M20) 20 meq PO ONETIME ONE Stop: 11/04/16 13:16 Last Admin: 11/04/16 13:32 Dose: 20 meq Tamsulosin HCl (Flomax) 0.4 mg PO ONETIME ONE Stop: 11/04/16 22:05 Last Admin: 11/04/16 22:28 Dose: 0.4 mg Tamsulosin HCl (Flomax) 0.4 mg PO PCBREAKFAST JAYNE *Q Meaningful Use (DIS) - VTE *Q VTE Criteria *Q: - Stroke *Q Stroke Criteria *Q: - AMI *Q AMI Criteria *Q:
== END 2016-11-06 11:10 | disposition home or self-care (01) ==
LOC: JP.ED 07:12 → JP.MS 13:02
PROVIDERS: ADMIT Internal Medicine; ATTEND Internal Medicine
DX: R68.89 Other general symptoms and signs (principal); M79.1 Myalgia; L40.50 Arthropathic psoriasis, unspecified; F17.200 Nicotine dependence, unspecified, uncomplicated; Z79.899 Other long term (current) drug therapy; Z91.041 Radiographic dye allergy status; R30.0 Dysuria
CPT/HCPCS: 36415; 71010; 74176; 80053; 81001; 81003; 82365; 83605; 85025; 85651; 86140; 87040; 87086; 87804; 96361; 96372; 96374; 96375; 96376; 99285; A9270; G0378; J1170; J1885; J2060; J2405; J7040; 99217; 99218; 99225